=== PATIENT | female | born 1955 | race Caucasian/White ===

== ENCOUNTER → 2020-05-04 | Outpatient (CLI) | payer OTHER ==
[~2020-05-04] MED LIST: "\\\"STATIN\\\""; AMBIEN; AMLO5 PO; CIPR500 PO; HYDACE5 PO; NAPR500 PO; Prempro 0.625-1 EACH PO; ZOLP5 PO
[2020-05-09 15:12] LABS: HPV 16 Negative (Negative); HPV 18 Negative (Negative); HPV OTHER HR TYPES Negative (Negative)
== END | disposition home or self-care (01) ==
LOC: LAB SHORT 19:12 → LAB 19:12
PROVIDERS: Obstetrics & Gynecology
DX: Z01.419 Encounter for gynecological examination (general) (routine) without abnormal findings (principal)
CPT/HCPCS: 87624; G0123

== ENCOUNTER → 2020-09-10 | Outpatient (CLI) | payer OTHER | LOC: LAB 16:37 → LAB SHORT 16:37 | DX: N39.0 Urinary tract infection, site not specified (principal) | CPT/HCPCS: 87077; 87086; 87186 ==

== ENCOUNTER → 2020-11-27 | Outpatient (CLI) | payer OTHER | END | disposition home or self-care (01) | LOC: LAB 14:26 → LAB SHORT 14:26 | DX: N39.0 Urinary tract infection, site not specified (principal) | CPT/HCPCS: 87086 ==

== ENCOUNTER → 2022-11-07 | Outpatient (CLI) | payer OTHER ==
[2022-11-07 11:02] LABS: BASOPHILS ABSOLUTE AUTO 0.05 K/mm3 (0.00-0.23); BASOPHILS PERCENT AUTO 1 % (0-2); EOSINOPHILS ABSOLUTE AUTO 0.05 K/mm3 (0.00-0.68); EOSINOPHILS PERCENT AUTO 1 % (0-6); Hematocrit 45.1 % (33.0-51.0); Hemoglobin 14.8 g/dL (11.5-16.0); IMMATURE GRAN ABSOLUTE AUTO 0.02 K/mm3 (0.00-0.10); IMMATURE GRAN PERCENT AUTO 0 % (0-1); LYMPHOCYTES ABSOLUTE AUTO 1.56 K/mm3 (0.84-5.20); LYMPHOCYTES PERCENT AUTO 26 % (21-46); MONOCYTES ABSOLUTE AUTO 0.46 K/mm3 (0.16-1.47); MONOCYTES PERCENT AUTO 8 % (4-13); Mean Corpuscular HGB 29.9 pg (26.0-34.0); Mean Corpuscular HGB Conc 32.8 g/dL (31.5-36.5); Mean Corpuscular Volume 91 fL (80-100); Mean Platelet Volume 9.7 fL (9.1-12.4); NEUTROPHILS ABSOLUTE AUTO 3.94 K/mm3 (1.96-9.15); NEUTROPHILS PERCENT AUTO 65 % (41-73); Platelet Count 204 K/mm3 (150-400); RDW Coefficient Variation 13.2 % (11.7-14.2); RDW Standard Deviation 44.3 fL (35.1-46.3); Red Blood Cell Count 4.95 M/mm3 (3.80-5.20); White Blood Cell Count 6.08 K/mm3 (4.00-11.30)
[2022-11-07 11:31] LABS: Alanine Aminotransfer (ALT/SGP 36 U/L (12-78); Albumin/Globulin Ratio 1.3 (0.8-1.8); Alk Phos 73 U/L (50-136); Anion Gap 7 mmol/L (6-16); Aspartate Aminotrans (AST/SGOT 21 U/L (12-37); Bilirubin, Total 1.1 mg/dL (0.1-1.0); Blood Urea Nitrogen 16 mg/dL (8-24); Bun/Creatinine Ratio 22.9 (12.0-20.0); CHOL/HDL RATIO 2.7; CO2, Blood 27 mmol/L (21-32); Calcium, Blood 8.8 mg/dL (8.5-10.1); Chloride, Blood 109 mmol/L (98-108); Cholesterol 298 mg/dL (50-200); Globulin, Blood 3.1 g/dL (2.2-4.0); Glomerular Filtration Rate 95 (60-); Glucose, Blood 107 mg/dL (70-99); HDL Cholesterol 111 mg/dL (>39); LDL/HDL RATIO 1.5; Low Density Lipoprotein Chol 170 mg/dL (0-110); Potassium, Blood 4.5 mmol/L (3.5-5.5); Sodium, Blood 143 mmol/L (136-145); Total Protein, Blood 7.1 g/dL (6.4-8.2); Triglycerides 86 mg/dL (30-160); Very Low Density Lipoprot Chol 17 mg/dL (6-32)
== END ==
LOC: LAB SHORT 08:59 → LAB 08:59
PROVIDERS: Internal Medicine
DX: E78.00 Pure hypercholesterolemia, unspecified (principal)
CPT/HCPCS: 80053; 80061; 84443; 85025

== ENCOUNTER → 2023-11-12 | Outpatient (CLI) | payer OTHER ==
[~2023-11-12] MED LIST changes: +LOSA25 PO; +PARO10; +ROSU5 PO
[2023-11-12 15:23] LABS: BODY FLUID RBC 0.009 M/mm3 (0-0)
[2023-11-12 15:25] LABS: RBC Count, Synovial Fluid 9000 /mm3 (0-0); WBC Count, Synovial Fluid 230 /mm3 (0-180)
[2023-11-12 16:03] LABS: Appearance, Synovial Fluid Hazy (Clear); Color, Synovial Fluid Dark Yellow (None-P Yel); Lymphs, Synovial Fluid 25 % (0-15); Monocytes/Macrophages, Synovia 66 % (0-65); Neutrophils, Synovial Fluid 9 % (0-24)
== END | disposition home or self-care (01) ==
LOC: LAB SHORT 14:10
PROVIDERS: Orthopaedic Surgery
DX: S83.242D Other tear of medial meniscus, current injury, left knee, subsequent encounter (principal); S83.282D Other tear of lateral meniscus, current injury, left knee, subsequent encounter; M17.12 Unilateral primary osteoarthritis, left knee; Z98.890 Other specified postprocedural states
CPT/HCPCS: 89051

== ENCOUNTER → 2024-03-08 | Outpatient (CLI) | payer OTHER | END | disposition home or self-care (01) | LOC: LAB SHORT 09:40 → LAB 09:40 | DX: N30.00 Acute cystitis without hematuria (principal) | CPT/HCPCS: 87077; 87086; 87186 ==

== ENCOUNTER 2024-12-22 06:03 | Day surgery (SDC) | payer OTHER ==
[~2024-12-22] VITALS: Ht 161 cm; Wt 59.1 kg
[2024-12-22] VITALS (12 sets, daily range): BP systolic 107–147; BP diastolic 59–87
[~2024-12-22 06:03] MED LIST changes: +CALCIUM 500+D1 EACH PO; +CRANBERRY500 M1 PO; +MERIBIN5 MG PO; -PARO10; +PARO10 PO; +[UNRECOGNIZED DRUG - OTHER] PO
[2024-12-22] MEDS ORDERED: Chlorhexidine Mouth Care 15 ML UDC MT SCH (06:15)
[2024-12-22] MEDS ORDERED: Ropivacaine 0.5% HCl/Pf 123.125 MG,EPINEPHrine HCL 0.25 MG,Ketorolac Tromethamine 15 MG... INFIL SCH (06:15)
[2024-12-22] MEDS ORDERED: Tranexamic Acid 100 ML IV SCH (06:15)
[2024-12-22] MEDS ORDERED: CeFAZolin Sodium 2,000 MG in NS 100 ML IV SCH ×2 (06:15→16:00)
[2024-12-22] MEDS ORDERED: ACET500 PO (06:29)
[2024-12-22] MEDS ORDERED: DOCU100 PO (06:31)
[2024-12-22] MEDS ORDERED: HYDROmorphone HCl/Pf 1MG SYR IV PRN ×2 (06:55→07:40)
[2024-12-22] MEDS ORDERED: Magnesium Hydroxide Conc 10 ML UDC PO PRN (07:00)
[2024-12-22] MEDS ORDERED: Metoclopramide HCl 5MG / ML 2ML Vial IV PRN (07:00)
[2024-12-22] MEDS ORDERED: Ondansetron HCl 2 MG / ML 2ML Vial IV PRN ×2 (07:05→07:40)
[2024-12-22] MEDS ORDERED: Midazolam HCl 1MG / ML 2ML Vial ONE (07:18)
[2024-12-22] MEDS ORDERED: FentaNYL Citrate 50 MCG/ML 2 ML Injection ONE (07:18)
[2024-12-22] MEDS ORDERED: Ondansetron HCl 2 MG / ML 2ML Vial ONE (07:20)
[2024-12-22] MEDS ORDERED: Dexamethasone Sod Phos 10 MG/ML 1ML VIAL ONE (07:20)
[2024-12-22] MEDS ORDERED: Bupivacaine 0.75%/Dext 8.25% 2 ML Amp IT ONE (07:23)
[2024-12-22] MEDS ORDERED: FentaNYL Citrate 50 MCG/ML 2 ML Injection IV PRN ×3 (07:35→07:40)
[2024-12-22] MEDS ORDERED: Labetalol HCL 5 MG/ML 4ML Injection (Single Dose) IV PRN (07:35)
[2024-12-22] MEDS ORDERED: Phenylephrine HCl 100 MCG/ML-NS 10MLSYR (1MG/10ML) ONE ×2 (08:26→08:55)
[2024-12-22] MEDS ORDERED: Ketorolac Tromethamine 30mg Vial ONE (09:13)
--- NOTE | 2024-12-22 11:26 | NUR ---
ARRIVAL TO UNIT 1045 PT IS A/OX4. ARRIVED TO UNIT ON RA VIA HOSP BED. DENIES PAIN. TOLERATING INTAKE W/OUT N/V. SNACKS AND DRINK GIVEN, CALL LIGHT EXPLAINED AND IN REACH. BED IN LOWEST POSITION. SPOUSE IN ROOM. CRYO THERAPY IN USE.
[2024-12-22] MEDS ORDERED: Ketorolac Tromethamine 15mg Vial IV SCH (12:00)
[2024-12-22] MEDS ORDERED: LINE600 PO (15:24)
[2024-12-22] MEDS ORDERED: OXAYDO5 M1 PO (15:25)
[2024-12-22] MEDS ORDERED: ONDA4ODT MM (15:26)
--- NOTE | 2024-12-22 16:18 | NUR ---
DISCHARGE NOTE PT IS A/OX4. PAIN MANAGED PER EMAR. TOLERATING INTAKE AND VOIDING WELL. SURGICAL SITE C/D/I. PT WORKED W/ PHYSICAL THERAPY, THEY RECOMMENDED DC HOME. PROVIDED DC EDUCATION, PT VERABLIZED UNDERSTANDING. VSS. ESCORTED OUT VIA @ [phone]. IV DC PRIOR TO DC. PT SENT HOME W/ ALL PERSONAL BELONGINGS.
[2024-12-22] MEDS ORDERED: Lactobacil 2-S.Thermo-Bifido 1 1 Cap PO SCH (21:00)
[2024-12-23] MEDS ORDERED: Calcium 500 MG/Vit D 200 Units Tab PO SCH (09:00)
[2024-12-23] MEDS ORDERED: Cranberry Extract 250MG W/30 MG Vitamin C Tab PO SCH (09:00)
== END 2024-12-22 16:12 | disposition home or self-care (01) ==
LOC: ORSCMMR 06:03 → ORD 07:30 → SURS 10:42 → ORSCMMR 16:12 → SURS 16:12
PROVIDERS: Orthopaedic Surgery
PROC: 0SRD0JA Replacement of Left Knee Joint with Synthetic Substitute, Uncemented, Open Approach (ICD-10-PCS; principal; 2024-12-22 07:30)
DX: M17.12 Unilateral primary osteoarthritis, left knee (principal); I10 Essential (primary) hypertension; E78.00 Pure hypercholesterolemia, unspecified; Z79.899 Other long term (current) drug therapy
CPT/HCPCS: 73560-LT; 97110; 97116; 97161; A9270; C1713; C1776; J0166; J0690; J0735; J1100; J1885; J2250; J2371; J2405; J2704; J2795; J3010; J3373; J7050; J7120

== ENCOUNTER → 2025-01-31 | Outpatient (CLI) | payer OTHER ==
[~2025-01-31] MED LIST changes: +ACET500 PO; +DOCU100 PO; +LINE600 PO; +ONDA4ODT MM; +OXAYDO5 M1 PO
== END ==
LOC: LAB 11:30 → LAB SHORT 11:30
DX: N30.01 Acute cystitis with hematuria (principal)
CPT/HCPCS: 87077; 87086; 87186